=== PATIENT | female | born 1980 | race Caucasian/White ===

== ENCOUNTER 2017-06-01 06:17 | Day surgery (SDC) | payer BC ==
[~2017-06-01] VITALS: Ht 160 cm; Wt 95.3 kg
[2017-06-01 06:58] LABS: BASOPHILS % (AUTO) 0 % (0-10); EOSINOPHILS # (AUTO) 0.1 10^3/uL (0.0-0.3); EOSINOPHILS % (AUTO) 1 % (0-10); HEMATOCRIT 42 % (35-52); HEMOGLOBIN 14.2 G/DL (11.5-16.0); LYMPHOCYTES # (AUTO) 2.5 X 10^3 (1.0-4.0); LYMPHOCYTES % (AUTO) 28 % (12-44); MEAN CORPUSCULAR HEMOGLOBIN 30 PG (25-34); MEAN CORPUSCULAR HGB CONC 34 G/DL (32-36); MEAN CORPUSCULAR VOLUME 87 FL (80-99); MEAN PLATELET VOLUME 9.8 FL (7.4-10.4); MONOCYTES # (AUTO) 0.5 X 10^3 (0.0-1.0); MONOCYTES % (AUTO) 6 % (0-12); NEUTROPHILS # (AUTO) 5.8 X 10^3 (1.8-7.8); NEUTROPHILS % (AUTO) 65 % (42-75); PLATELET COUNT 399 10^3/uL (130-400); RED BLOOD COUNT 4.81 10^6/uL (4.35-5.85); RED CELL DISTRIBUTION WIDTH 13.8 % (10.0-14.5); WHITE BLOOD COUNT 8.9 10^3/uL (4.3-11.0)
[2017-06-01 06:59] LABS: BILIRUBIN,URINE NEGATIVE (NEGATIVE); CLARITY,URINE VERY CLOUDY; COLOR,URINE YELLOW; GLUCOSE, URINE (UA) NEGATIVE (NEGATIVE); KETONES,URINE NEGATIVE (NEGATIVE); LEUKOCYTE ESTERASE ,URINE 1+ (NEGATIVE); NITRITE,URINE NEGATIVE (NEGATIVE); PH,URINE 6 (5-9); PROTEIN,URINE NEGATIVE (NEGATIVE); UROBILINOGEN,URINE NORMAL (NORMAL)
[2017-06-01 07:07] LABS: BACTERIA,URINE NEGATIVE /HPF; RBC,URINE RARE /HPF; SQUAMOUS EPITHELIAL CELL,UR TNTC /HPF; WBC,URINE RARE /HPF
[2017-06-01 07:15] LABS: ALANINE AMINOTRANSFERASE 20 U/L (0-55); ALBUMIN 4.3 GM/DL (3.2-4.5); ALKALINE PHOSPHATASE 82 U/L (40-136); BILIRUBIN,TOTAL 0.6 MG/DL (0.1-1.0); BUN/CREATININE RATIO 10; CALCIUM 9.6 MG/DL (8.5-10.1); CARBON DIOXIDE 25 MMOL/L (21-32); CHLORIDE 104 MMOL/L (98-107); GFR ESTIMATED > 60; GLUCOSE 121 MG/DL (70-105); LIPASE 15 U/L (8-78); POTASSIUM 4.1 MMOL/L (3.6-5.0); SODIUM 141 MMOL/L (135-145); TOTAL PROTEIN 7.6 GM/DL (6.4-8.2)
--- NOTE | 2017-06-01 08:54 | Diagnostic Imaging Report ---
PROCEDURE: US Gallbladder. TECHNIQUE: Multiple real-time grayscale images were obtained over the right upper quadrant in various projections. INDICATION: Right upper quadrant pain The liver has increased echogenicity consistent with fatty infiltration. There is a stone in the gallbladder near the neck. The common duct is not dilated. Pancreas is obscured by bowel gas. Right kidney appeared normal. There is no ascites. Patient had a positive sonographic Lewis sign. IMPRESSION: Hepatic steatosis. Cholecystolithiasis with a positive sonographic Lewis's sign. Dictated by: Dictated on workstation # [id number]
--- NOTE | 2017-06-01 10:04 | ED Abdominal Pain ---
General Chief Complaint: Abdominal/GI Problems Stated Complaint: GALLBLADDER PAIN Nursing Triage Note: pt presents to er with complaint of abd pain. pt states that her pain is due to her gallbladder and that she is to see dr campbell on sunday. states that pain has gotten worse. and could not wait till her appointment on sunday. Sepsis Screen: No Definite Risk Source of Information: Patient Exam Limitations: No Limitations NPO Since: 05/31/16 1630 History of Present Illness Time Seen By Provider: 08:00 Initial Comments The patient is a 36-year-old white female who presents with complaints of right upper quadrant abdominal pain. She has been troubled by this for about a week. She reports it increases with eating. She was seen at the [facility] ER clinic in [place] yesterday. A sonogram was done which apparently showed a stone. This is not available to us. She reports that she has been unable to eat or sleep since 1629 yesterday. There is radiation towards the right lower quadrant and the right shoulder. Severity/Quality: Moderate Location: RUQ, Epigastric Allergies and Home Medications Allergies Coded Allergies: diphenhydramine (Unverified Allergy, Unknown, 06/01/17) Uncoded Allergies: PENICILLIN (Allergy, Unknown, 06/01/17) Review of Systems Constitutional: chills EENTM: No Symptoms Reported Respiratory: No Symptoms Reported Cardiovascular: No Symptoms Reported Gastrointestinal: See HPI Musculoskeletal: no symptoms reported Skin: no symptoms reported Psychiatric/Neurological: No Symptoms Reported Endocrine: No Symptoms Reported Hematologic/Lymphatic: No Symptoms Reported Past Xzrjchc-Oeblxy-Deosrz Hx Patient Social History Alcohol Use: Denies Use Recreational Drug Use: No Smoking Status: Current Everyday Smoker Type Used: Cigarettes Recent Foreign Travel: No Contact w/Someone Who Travel: No Recent Infectious Disease Expo: No Recent Hopitalizations: No Seasonal Allergies Seasonal Allergies: No Surgeries Surgeries: Appendectomy Respiratory History of Respiratory Disorde: No Cardiovascular History of Cardiac Disorders: No Neurological History of Neurological Disord: No Genitourinary History of Genitourinary Disor: No Musculoskeletal History of Musculoskeletal Dis: No Endocrine Endocrine Disorders: Diabetes, Insulin dep, Hypothyroidsim HEENT History of HEENT Disorders: No Cancer History of Cancer: No Psychosocial History of Psychiatric Problem: No Integumentary History of Skin or Integumenta: No Blood Transfusions History of Blood Disorders: No Physical Exam Vital Signs VS - Last 72 Hours, by Label 06/01/17 06:34 Temp 97.0 Pulse 91 Resp 20 B/P (MAP) 121/73 (89) Pulse Ox 98 O2 Delivery Room Air Capillary Refill : Less Than 3 Seconds General Appearance: mild distress HEENT: normal ENT inspection Neck: full range of motion Respiratory: chest non-tender, lungs clear, normal breath sounds, no respiratory distress, no accessory muscle use Cardiovascular: normal peripheral pulses, regular rate, rhythm, no edema, no gallop, no JVD, no murmur Gastrointestinal: other Extremities: normal range of motion, non-tender, normal inspection, no pedal edema, no calf tenderness, normal capillary refill, pelvis stable Progress/Results/Core Measures Results/Orders Lab Results Laboratory Tests Test 06/01/17 06:50 Range/Units White Blood Count 8.9 4.3-11.0 10^3/uL Red Blood Count 4.81 4.35-5.85 10^6/uL Hemoglobin 14.2 11.5-16.0 G/DL Hematocrit 42 35-52 % Mean Corpuscular Volume 87 80-99 FL Mean Corpuscular Hemoglobin 30 25-34 PG Mean Corpuscular Hemoglobin Concent 34 32-36 G/DL Red Cell Distribution Width 13.8 10.0-14.5 % Platelet Count 399 130-400 10^3/uL Mean Platelet Volume 9.8 7.4-10.4 FL Neutrophils (%) (Auto) 65 42-75 % Lymphocytes (%) (Auto) 28 12-44 % Monocytes (%) (Auto) 6 0-12 % Eosinophils (%) (Auto) 1 0-10 % Basophils (%) (Auto) 0 0-10 % Neutrophils # (Auto) 5.8 1.8-7.8 X 10^3 Lymphocytes # (Auto) 2.5 1.0-4.0 X 10^3 Monocytes # (Auto) 0.5 0.0-1.0 X 10^3 Eosinophils # (Auto) 0.1 0.0-0.3 10^3/uL Basophils # (Auto) 0.0 0.0-0.1 10^3/uL Urine Color YELLOW Urine Clarity VERY CLOUDY H Urine pH 6 5-9 Urine Specific [place] 1.020 1.016-1.022 Urine Protein NEGATIVE NEGATIVE Urine Glucose (UA) NEGATIVE NEGATIVE Urine Ketones NEGATIVE NEGATIVE Urine Nitrite NEGATIVE NEGATIVE Urine Bilirubin NEGATIVE NEGATIVE Urine Urobilinogen NORMAL NORMAL MG/DL Urine Leukocyte Esterase 1+ H NEGATIVE Urine RBC (Auto) NEGATIVE NEGATIVE Urine RBC RARE /HPF Urine WBC RARE /HPF Urine Squamous Epithelial Cells TNTC H /HPF Urine Crystals NONE /LPF Urine Bacteria NEGATIVE /HPF Urine Casts NONE /LPF Urine Mucus NEGATIVE /LPF Urine Culture Indicated NO Sodium Level 141 135-145 MMOL/L Potassium Level 4.1 3.6-5.0 MMOL/L Chloride Level 104 98-107 MMOL/L Carbon Dioxide Level 25 21-32 MMOL/L Anion Gap 12 5-14 MMOL/L Blood Urea Nitrogen 7 7-18 MG/DL Creatinine 0.70 0.60-1.30 MG/DL Estimat Glomerular Filtration Rate > 60 BUN/Creatinine Ratio 10 Glucose Level 121 H 70-105 MG/DL Calcium Level 9.6 8.5-10.1 MG/DL Total Bilirubin 0.6 0.1-1.0 MG/DL Aspartate Amino Transf (AST/SGOT) 15 5-34 U/L Alanine Aminotransferase (ALT/SGPT) 20 0-55 U/L Alkaline Phosphatase 82 40-136 U/L Total Protein 7.6 6.4-8.2 GM/DL Albumin 4.3 3.2-4.5 GM/DL Lipase 15 8-78 U/L My Orders Orders - MIRZA COOPER MD Cbc With Automated Diff (06/01/17 06:41) Comprehensive Metabolic Panel (06/01/17 06:41) Lipase (06/01/17 06:41) Ua Culture If Indicated (06/01/17 06:41) Us Gallbladder [id number] (06/01/17 07:37) Vital Signs/I&O Vital Sign - Last 12Hours 06/01/17 06:34 Temp 97.0 Pulse 91 Resp 20 B/P (MAP) 121/73 (89) Pulse Ox 98 O2 Delivery Room Air Blood Pressure Mean: 89 Departure Communication (Admissions) Progress Notes Discussed findings with Dr. Campbell. He explored the surgery schedule and found a time at 1430 today. This is desirable to the patient. Impression Impression: Primary Impression: acute cholecystitis Disposition: ADMITTED INPATIENT Condition: Stable/Unchanged Admissions Decision to Admit Reason: Admit from ER (General) Decision to Admit/Date: Jun 01, 2017 Time/Decision to Admit Time: 10:05 Departure-Patient Inst. Referrals: ENE CARRASCO MD (PCP) Primary Care Physician MARIVEL LAM APRN (Family) Primary Care Physician MIRZA COOPER MD Jun 01, 2017 10:04
[2017-06-01 11:04] VITALS: BP 115/62
[2017-06-01] MEDS ORDERED: NS IV 1000 ML 1,000 ML ONE (11:10)
[2017-06-01] MEDS ORDERED: ONDANSETRON 4 MG/2 ML (SDV) Z0FRAN IVP PRN ×2 (11:30→16:15)
[2017-06-01] MEDS ORDERED: fentaNYL INJECTION 100 MCG/2 ML AMP IVP PRN (11:30)
[2017-06-01] MEDS ORDERED: NS IV 1000 ML 1,000 ML IV SCH (11:30)
[2017-06-01] MEDS ORDERED: INFLUENZA TRIvalent 2017-2018 0.5 ML/45 MCG SYR IM ONE (12:00)
[2017-06-01] MEDS ORDERED: CLINDAMYCIN 900 MG/6ML (CLEOCIN) VIAL ONE (14:05)
[2017-06-01] MEDS ORDERED: NS (IVPB) 50 ML ONE (14:05)
--- NOTE | 2017-06-01 14:07 | Consultation ---
History of Present Illness History of Present Illness Patient Consulted On(isaias/time) 06/01/17 14:01 Date Seen by Provider: Jun 01, 2017 Time Seen by Provider: 13:31 History of Present Illness Surgery asked to consult regarding RUQ pain, r/o cholecystitis HPI: Per ED -- pt presented to ER with complaint of abd pain. pt states that her pain is due to her gallbladder and that she is to see dr edgar on sunday. states that pain has gotten worse. and could not wait till her appointment on sunday. Patient is a 36-year-old white female who presents with complaints of right upper quadrant abdominal pain. She has been troubled by this for about a week. She reports it increases with eating. She was seen at the [facility] in [place] [employer] yesterday. An US was done which apparently showed a stone. This is not available to us. She reports that she has been unable to eat or sleep since 1630 yesterday. There is radiation towards the right lower quadrant and the right shoulder. When seen now pt described 10 out of 10 pain, the only reason she didn't come in last night because of icy roads. She did eat a taco and pain started after that; she is not sure she can relate it to food. She thinks she has had "gas pains" in the past, but nothing like this pain. Nothing has made pain better. Allergies and Home Medications Allergies Coded Allergies: diphenhydramine (Unverified Allergy, Unknown, 06/01/17) Uncoded Allergies: PENICILLIN (Allergy, Unknown, 06/01/17) Past Yckzrlb-Jfiqlu-Oatqfk Hx Patient Social History Alcohol Use: Denies Use Recreational Drug Use: No Smoking Status: Current Everyday Smoker Type Used: Cigarettes Recent Foreign Travel: No Contact w/Someone Who Travel: No Recent Infectious Disease Expo: No Recent Hopitalizations: No Physical Abuse Screen: No Sexual Abuse: No Seasonal Allergies Seasonal Allergies: No Surgeries History of Surgeries: Yes Surgeries: Appendectomy Respiratory History of Respiratory Disorde: No Cardiovascular History of Cardiac Disorders: No Neurological History of Neurological Disord: Yes Reproductive System Sexually Transmitted Disease: No HIV/AIDS: No Female Reproductive Disorders: Denies Genitourinary History of Genitourinary Disor: Yes Genitourinary Disorders: Bladder Infection Gastrointestinal History of Gastrointestinal Di: Yes Gastrointestinal Disorders: Gastroesophageal Reflux Musculoskeletal History of Musculoskeletal Dis: No Endocrine History of Endocrine Disorders: Yes Endocrine Disorders: Diabetes, Insulin dep, Hypothyroidsim HEENT History of HEENT Disorders: No Cancer History of Cancer: No Psychosocial History of Psychiatric Problem: No Integumentary History of Skin or Integumenta: No Blood Transfusions History of Blood Disorders: No Family Medical History Significant Family History: Heart Disease (Mother had CABG), COPD (Father - also had emphysema), Hypertension (Mother) Family Medial History: Cardiovascular disease Hypertension Respiratory disorder Review of Systems-General Constitutional: chills, No diaphoresis, malaise, weakness EENTM: No blurred vision, No eye pain, No vision loss, No mouth pain, No mouth swelling, No epistaxis, No throat swelling Respiratory: No cough, No dyspnea on exertion, No hemoptysis Cardiovascular: No chest pain, No palpitations Gastrointestinal: RUQ, see HPI, heartburn, No jaundice, No melena, nausea, No vomiting Genitourinary: No dysuria, No frequency, No hematuria Musculoskeletal: No joint pain, No joint swelling, No muscle stiffness Skin: No dryness, No lesions, No lumps, No pruritus Psychiatric/Neurological: Denies Anxiety, Denies Depressed, Denies Headache, Denies Seizure, Denies Tingling, Denies Tremors Other pt denies any abnormal bruising or bleeding, no heat or cold intolerance Physical Exam-General Problems Physical Exam Vital Signs Vital Sign - Last 12Hours 06/01/17 06:34 Temp 97.0 Pulse 91 Resp 20 B/P (MAP) 121/73 (89) Pulse Ox 98 O2 Delivery Room Air Capillary Refill : Less Than 3 Seconds General Appearance: WD/WN, mild distress Eyes: Bilateral Eye PERRL, Bilateral Eye EOMI HEENT: pharynx normal, No scleral icterus (R), No scleral icterus (L), No pharyngeal erythema Neck: non-tender, full range of motion, supple, normal inspection Respiratory: chest non-tender, lungs clear, normal breath sounds, no respiratory distress, no accessory muscle use Cardiovascular: regular rate, rhythm, no edema, no murmur Gastrointestinal: normal bowel sounds, soft, no organomegaly, no pulsatile mass , guarding (voluntary), tenderness (RUQ) Back: no CVA tenderness, no vertebral tenderness Extremities: normal range of motion, non-tender, normal inspection, no pedal edema, no calf tenderness Neurologic/Psychiatric: teacher emotionally impaired II-XII nml as tested, no motor/sensory deficits, alert, normal mood/affect, oriented x 3 Skin: normal color, warm/dry Lymphatic: no adenopathy (neck, axilla or groin) Data Review Labs Laboratory Tests 06/01/17 06:50: White Blood Count 8.9, Red Blood Count 4.81, Hemoglobin 14.2, Hematocrit 42, Mean Corpuscular Volume 87, Mean Corpuscular Hemoglobin 30, Mean Corpuscular Hemoglobin Concent 34, Red Cell Distribution Width 13.8, Platelet Count 399, Mean Platelet Volume 9.8, Neutrophils (%) (Auto) 65, Lymphocytes (%) (Auto) 28, Monocytes (%) (Auto) 6, Eosinophils (%) (Auto) 1, Basophils (%) (Auto) 0, Neutrophils # (Auto) 5.8, Lymphocytes # (Auto) 2.5, Monocytes # (Auto) 0.5, Eosinophils # (Auto) 0.1, Basophils # (Auto) 0.0, Urine Color YELLOW, Urine Clarity VERY CLOUDYH, Urine pH 6, Urine Specific [place] 1.020, Urine Protein NEGATIVE, Urine Glucose (UA) NEGATIVE, Urine Ketones NEGATIVE, Urine Nitrite NEGATIVE, Urine Bilirubin NEGATIVE, Urine Urobilinogen NORMAL, Urine Leukocyte Esterase 1+H, Urine RBC (Auto) NEGATIVE, Urine RBC RARE, Urine WBC RARE, Urine Squamous Epithelial Cells TNTCH, Urine Crystals NONE, Urine Bacteria NEGATIVE, Urine Casts NONE, Urine Mucus NEGATIVE, Urine Culture Indicated NO, Sodium Level 141, Potassium Level 4.1, Chloride Level 104, Carbon Dioxide Level 25, Anion Gap 12, Blood Urea Nitrogen 7, Creatinine 0.70, Estimat Glomerular Filtration Rate > 60, BUN/Creatinine Ratio 10, Glucose Level 121H, Calcium Level 9.6, Total Bilirubin 0.6, Aspartate Amino Transf (AST/SGOT) 15, Alanine Aminotransferase (ALT/SGPT) 20, Alkaline Phosphatase 82, Total Protein 7.6, Albumin 4.3, Lipase 15 Assessment/Plan Assessment/Plan Assessment/Plan 1. Acute Cholecystitis with Cholelithiasis 2. DM Pt was admitted with IV fluids, IV pain medications, anti-emetics and will get a dose of IV ABX just prior to surgery. Pt had (+) Lewis's sign on US and has pain that is not controlled with meds; US showed stone in GB. Pt most likely has Acute Cholecystitis and will benefit from removal. However, I also discussed with pt the fact that it may also be Gastritis and if cholecystectomy does not take away all pain she may need an EGD in the future. We discussed risks and benefits of laparoscopic cholecystectomy; not limited to pain, bleeding, infection, scar, damage to bowel or bile duct and need for futher procedure. All questions answered to her and her husbands satisfaction. ELOISE EDGAR DO Jun 01, 2017 14:07
[2017-06-01] MEDS ORDERED: proPOfol 200 MG/20 ML (DIPRIVAN) VIAL IV ONE (14:09)
[2017-06-01] MEDS ORDERED: LACTATED RINGERS 1,000 ML IV ONE (14:09)
[2017-06-01] MEDS ORDERED: LIDOCAINE JELLY 2% (XYLOCAINE) 5 ML TUBE ONE (14:09)
[2017-06-01] MEDS ORDERED: ROCURONIUM 50 MG/5 ML (ZEMURON) VIAL IV ONE (14:09)
[2017-06-01] MEDS ORDERED: ONDANSETRON 4 MG/2 ML (SDV) Z0FRAN ONE (14:09)
[2017-06-01] MEDS ORDERED: fentaNYL INJECTION 100 MCG/2 ML AMP ONE (14:09)
[2017-06-01] MEDS ORDERED: LIDOCAINE PF 2% 5 ML (XYLOCAINE) VIAL ONE (14:09)
[2017-06-01] MEDS ORDERED: MIDAZOLAM 2 MG/2 ML (VERSED) VIAL ONE (14:10)
[2017-06-01] MEDS ORDERED: LIDOCAINE/EPI 1%-1:200,000 (XYLOCAINE) 10 ML VIAL ONE (14:12)
[2017-06-01] MEDS ORDERED: CLINDAMYCIN INJECTION 900 MG in NS (IVPB) 50 ML IV SCH (14:15)
[2017-06-01] MEDS: LACTATED RINGERS 1,000 ML IV PRN ×2 (14:20→15:20)
[2017-06-01] MEDS ORDERED: LACTATED RINGERS 1,000 ML IV PRN (15:15)
--- NOTE | 2017-06-01 15:26 | Progress Note-Post Operative ---
Post-Operative Progess Note Surgeon (s)/Environmental Compliance Inspector (s) Surgeon ELOISE EDGAR DO Environmental Compliance Inspector: Kirk Pre-Operative Diagnosis Acute Sheri/sheri DM Post-Operative Diagnosis same Procedure & Operative Findings Date of Procedure 06/01/17 Procedure Performed/Findings Lap sheri with IOC Anesthesia Type GET Estimated Blood Loss Estimated blood loss (mL): scant Specimens/Packing Specimens Removed GB and contents ELOISE EDGAR DO Jun 01, 2017 15:26
[2017-06-01] MEDS ORDERED: ACHD5005 PO (15:27)
[2017-06-01] MEDS ORDERED: GLYCOPYRROLATE 0.2 MG/ML (ROBINUL) 2 ML VIAL ONE (15:27)
[2017-06-01] MEDS ORDERED: SEVOFLURANE (ULTANE) 15 ML INHAL SOLN ONE (15:27)
[2017-06-01] MEDS ORDERED: NEOSTIGMINE (BLOXIVERZ ) 1 MG/1ML 10 ML VIAL ONE (15:27)
--- NOTE | 2017-06-01 15:29 | Discharge Inst-Surgical ---
Discharge Inst-Surgical Depart Medication/Instructions New, Converted or Re-Newed RX: RX Given to Pt/Family Patient Instructions Follow up Appt: Make appointment for 1 week; [phone]. Call on Sunday Instructions: No lifting greater than 10 pounds. No strenuous activity. May shower in 24 hours, no tub bath or soaking. Use incentive spirometer at home as directed. No Smoking Skin/Wound Care: May remove bandages in am. You need to leave the Dermabond on over incision it will fall off on its own. Symptoms to Report: Appetite Changes, Extremity Discoloration, Numbness/Tingling, Swelling Increased , Bleeding Excessive, Eyesight Changes, Pain Increased, Urine Color Change, Constipation(Persistent), Fever over 101 degree F, Pain/Pressure in chest, Urinating Difficulty, Cough Up/Vomit Blood, Heart Beat Irreg/Pounding, Pain/ Pressure in jaw, Vaginal Bleeding Increase, Cramps in feet or legs, Lightheadedness, Pain/Pressure in shoulder, Diarrhea(Persistent), Memory Changes Suddenly, Questions/Concerns, Weight gain consecutive days, Dizziness/ Fainting, Nausea/Vomiting, Shortness of Breath, Weight gain over 2 pounds. If eyes or skin turn yellow notify physician. If questions or concerns contact your physician Or seek help at emergency department. Activity Activity as Tolerated: Yes Activity Instructions: Avoid Stress to Incision Driving Instructions: No Driving/Refer to Dr. Jennings Discharge Diet: Avoid Fatty Foods, Low Fat/Low Cholesterol Diet After 24 Hours: Clear Liquid if Nauseous If Any Problems/Questions/Issu: Contact Your Physician, Go to Emergency Room Skin/Wound Care Infection Signs and Symptoms: Increased Redness, Foul Odor of Wound, Increased Drainage, Skin Itchy or Has a Rash, Increased Swelling, Temperature Above 101 F Wound Care Comment: Heating pad for shoulder or neck tonight for pain. Bathing Instructions: Shower Stitches/Gustavo/Dermabond Dis: Dermabond Ice Pack: Ice On and Off Site ELOISE EDGAR DO Jun 01, 2017 15:29
[2017-06-01] MEDS ORDERED: SUCCINYLCHOLINE INJ 100 MG/5 ML SYR ONE (15:44)
[2017-06-01] MEDS ORDERED: morphine INJ 10 MG/ML 1ML (SYR OR VIAL) ONE (16:05)
[2017-06-01] MEDS: morphine INJ 10 MG/ML 1ML (SYR OR VIAL) IVP PRN ×2 (16:10→16:15)
[2017-06-01] MEDS: MEPERIDINE (DEMEROL) INJ 50 MG/ML IVP PRN ×2 (16:20→16:35)
[2017-06-01 17:02] VITALS: BP 107/56
--- NOTE | 2017-06-01 18:13 | Diagnostic Imaging Report ---
INDICATION: Cholecystectomy Operative cholangiogram performed in a routine fashion with contrast injection via the cystic duct stump in surgery. Contrast fills the biliary tree. There are no filling defects in the common duct. Contrast passes to the duodenum without obstruction. IMPRESSION: Unremarkable operative cholangiogram. 27 seconds of fluoroscopy time was used. Dictated by: Dictated on workstation # [id number]
--- NOTE | 2017-06-02 05:25 | OPERATIVE REPORT ---
DATE OF SERVICE: 06/01/2017 PREOPERATIVE DIAGNOSES: 1. Acute cholecystitis, cholelithiasis. 2. Diabetes mellitus. POSTOPERATIVE DIAGNOSES: 1. Acute cholecystitis, cholelithiasis. 2. Diabetes mellitus. PROCEDURE: Laparoscopic cholecystectomy, intraoperative cholangiogram. SURGEON: Rolly Edgar DO [employer] MANAGER: Esteban Bradley DO ANESTHESIA: General endotracheal tube. SPECIMEN: Gallbladder and contents. BLOOD LOSS: Scant. FLUIDS: Per anesthesia. POSTOPERATIVE CONDITION: Stable. INDICATION FOR PROCEDURE: The patient is a 36-year-old female who had uncontrollable pain, 10/10 with a positive ultrasound and Lewis's sign, stone in the gallbladder, and diagnosed with probable acute cholecystitis. FINDINGS: The patient had minimal erythema at the tip of the gallbladder. She also had some adhesions down the Marnie's pouch. This is usually indicative of previous gallbladder attacks. Did not really see any edema. This is probably acute cholecystitis. She also had a small adhesion from her previous appendectomy. A picture of this was taken. PROCEDURE NOTE: After informed consent was obtained, the patient was brought to the operating room, placed on the table in supine position. She was sterilely prepped and draped in normal fashion. Local lidocaine was used to infiltrate the skin above the umbilicus. Made an incision with an #11 blade, carried down through the skin into the subcutaneous tissue and then deepened down subcutaneous tissue with Bovie electrocautery down to the fascia. Fascia incised with electrocautery and bluntly entered the abdomen, swept a finger around, placed 0 Vicryl [id number] suture, then placed an 11 mm trocar port under direct visualization. Created a pneumoperitoneum and then placed 3 more ports in a normal fashion using local lidocaine, an 11 blade for stab incision and the VersaStep system, all done under direct visualization, one subxiphoid and two in the right upper quadrant. The patient was then placed slightly in reverse Trendelenburg and rotated left, able to grasp the gallbladder at the fundus, it looked a little bit erythematous. Picture was taken then able to grasp down to Garduno's pouch and pulled in the inferolateral direction. There were some adhesions down here that is usually indicative of previous gallbladder attacks. Carefully took this down with Bovie electrocautery. I then carefully started dissecting out the cystic duct and cystic artery. I was able to get around the cystic duct and the cystic artery and placed one clip distally on the cystic duct and one distally and one proximally in the cystic artery and then placed a cholangiocath. Cut the cystic duct with Metzenbaum scissors, placed a cholangiogram catheter and then shot a cholangiogram. Good spillage of dye down the common bile duct into the small intestine as well as up into the common hepatic right and left hepatic and the cystic duct. Removed the cholangiogram catheter, placed two clips proximally on the cystic duct and cut the cystic duct and cystic artery with Metzenbaum scissors. Removed the gallbladder from bed of liver with L-hook cautery. Once it was completely removed, switched to 5 mm camera, placed a bag in the abdomen, placed the gallbladder in the bag and then removed this through the supraumbilical incision. Placed the port back in the abdomen, copiously irrigated with normal saline, suctioned this out, there was no bleeding from the bed of liver, noted adhesions from previous surgery, took a picture of this and the patient was then placed supine, allowed the pneumoperitoneum to escape as well as suctioned out and then closed supraumbilical incision, closing the fascia with 0 Vicryl suture previously placed and copiously irrigated all incisions with normal saline, closing the 3 small 5 mm incisions with single interrupted 4-0 undyed Monocryl subcuticular stitch. Closed the supraumbilical incision with 3 interrupted 4-0 undyed Monocryl subcuticular stitches. Area was cleaned and dried and Dermabond placed over the incisions and then Band-Aids. The patient then transferred to recovery room in stable condition. Sponge, instrument and needle counts correct at the end of the case. Dr. Bradley assisted in this case helping to make incisions, close the incisions, hold the anatomy and identify anatomy. Job ID: [id number] DocumentID: [id number] Dictated Date: 06/01/2017 15:42:46 [employer] Forming Machine Operator Date: 06/02/2017 00:23:38 Dictated By: ROLLY EDGAR DO
== END 2017-06-01 18:02 | disposition home or self-care (01) ==
LOC: ER 06:25 → SDC 10:08 → 4TH 12:11 → SDC 18:02
PROVIDERS: ATTEND Surgery
DX: K80.10 Calculus of gallbladder with chronic cholecystitis without obstruction (principal); E11.9 Type 2 diabetes mellitus without complications; E03.9 Hypothyroidism, unspecified; K21.9 Gastro-esophageal reflux disease without esophagitis; F17.210 Nicotine dependence, cigarettes, uncomplicated; Z79.899 Other long term (current) drug therapy
CPT/HCPCS: 36415; 76705; 80053; 81000; 82962; 83690; 84703; 85025

== ENCOUNTER → 2017-06-12 | Outpatient (CLI) | payer BC ==
[~2017-06-12] MED LIST: ACHD5005 PO
--- NOTE | 2017-06-12 12:56 | Diagnostic Imaging Report ---
PROCEDURE: US Abdomen, limited. TECHNIQUE: Multiple realtime grayscale images were obtained over the abdomen in various projections. INDICATION: Pain after gallbladder surgery. FINDINGS: Limited real-time grayscale images were obtained of the incision. There is no evidence for hernia. IMPRESSION: No sonographic evidence of hernia. Dictated by: Dictated on workstation # [id number]
== END ==
LOC: RAD 11:08
PROVIDERS: ATTEND Surgery
DX: R10.9 Unspecified abdominal pain (principal); Z98.890 Other specified postprocedural states
CPT/HCPCS: 76705